=== PATIENT | female | born 1950 | race Caucasian/White ===

== ENCOUNTER → 2016-11-28 | Outpatient (CLI) | payer OTHER, BC ==
[~2016-11-28] MED LIST: ASPI-390 PO; CALCTAB5 PO; CHOL200010 PO; DOXY50CA26 PO; IPRA0.037 NAE; OLOP0.6S NAE
== END | disposition home or self-care (01) ==
LOC: C.PAPS 11:22
PROVIDERS: ATTEND Obstetrics & Gynecology
DX: Z01.419 Encounter for gynecological examination (general) (routine) without abnormal findings (principal)

== ENCOUNTER → 2016-11-29 | Outpatient (CLI) | payer OTHER, BC ==
--- NOTE | 2016-11-30 17:13 | MAMMOGRAPHY REPORT ---
BILATERAL DIGITAL SCREENING MAMMOGRAM TOMOSYNTHESIS WITH CAD: 11/29/2016 CLINICAL HISTORY: Routine screening. Patient has no complaints. TECHNIQUE: Breast tomosynthesis in addition to standard 2D mammography was performed. Current study was also evaluated with a Computer Aided Detection (CAD) system. COMPARISON: Comparison is made to exams dated: 11/26/2015 mammogram, 11/20/2013 mammogram, 11/19/2012 m ammogram, 11/17/2011 mammogram, 11/16/2010 mammogram, and 10/30/2009 mammogram - [facility] enter. BREAST COMPOSITION: The tissue of both breasts is extremely dense, which lowers the sensitivity of mammography. FINDINGS: The parenchymal pattern is unchanged. No developing mass, architectural distortion or clu ster of suspicious microcalcifications is seen in either breast. IMPRESSION: ACR BI-RADS CATEGORY 2: BENIGN There is no mammographic evidence of malignancy. A 1 year screening mammogram is recommended. The p atient will receive written notification of the results. Approximately 10% of breast cancers are not detected with mammography. A negative mammographic repor t should not delay biopsy if a clinically suggestive mass is present. Christine Estrada M.D. ay/:11/30/2016 16:33:19 Senior Water/Wastewater Engineer: Radha GRANADO(R)(M), [facility] letter sent: Normal 1/2 BI-RADS Code: ACR BI-RADS Category 2: Benign
== END | disposition home or self-care (01) ==
LOC: C.MAMM 10:36
PROVIDERS: ATTEND Obstetrics & Gynecology
DX: Z12.31 Encounter for screening mammogram for malignant neoplasm of breast (principal)

== ENCOUNTER → 2017-06-30 | Outpatient (CLI) | payer OTHER, BC ==
[2017-06-30 13:36] LABS: HEMATOCRIT 39.4 % (37-47); MEAN CELL VOLUME 91.2 fL (80-100); MEAN CORPUSCULAR HEMOGLOBIN 30.6 pg (25-34); MEAN CORPUSCULAR HGB CONC 33.5 g/dl (32-36); MEAN PLATELET VOLUME 10.3 fL (7.4-10.4); PLATELET COUNT 235 K/uL (130-400); RED BLOOD COUNT 4.32 M/uL (4.2-5.4); WHITE BLOOD COUNT 4.33 K/uL (4.8-10.8)
[2017-06-30 14:21] LABS: BLOOD UREA NITROGEN 16 mg/dl (7-18); BUN/CREATININE RATIO 22.1 (10-20); CARBON DIOXIDE 28 mmol/L (21-32); CHLORIDE 109 mmol/L (98-107); GLUCOSE 104 mg/dl (70-99); POTASSIUM 4.2 mmol/L (3.5-5.1); SODIUM 142 mmol/L (136-145)
[2017-06-30 14:35] LABS: ALB/GLOB RATIO 1.2 (0.9-2); ALKALINE PHOSPHATASE 102 U/L (45-117); ALT/SGPT 25 U/L (12-78); AST/SGOT 18 U/L (15-37); CHOLESTEROL 244 mg/dl (0-200); CHOLESTEROL/HDL RATIO 3.2; HDL CHOLESTEROL 77 mg/dl; LDL CHOLESTEROL CALCULATED 150 mg/dl; TRIGLYCERIDES 86 mg/dl (0-150); VERY LOW DENSITY LIPOPROT CALC 17 mg/dl
[2017-07-05 02:22] LABS: ANTI-STRIATED MUSCLE NEGATIVE (NEGATIVE); RECEPTOR BINDING AB <0.30 nmol/L
--- NOTE | 2017-07-10 13:16 | CODING QUERY MEDICAL NECESSITY ---
SUPPORTING DIAGNOSIS NEEDED A supporting diagnosis is required for the test/procedure performed on this patient in order for us to be reimbursed by the patient's insurance. Please provide a supporting diagnosis for the following test/procedure listed below next to the test name along with your signature. *If there is no additional diagnosis for this patient that would support the following test/procedure please document that below next to the test/procedure. Test(s)/Procedure(s) that require a supporting diagnosis: * VITAMIN B12 DIAGNOSIS: Provider Signature: Date: Thank you Nayely [place] [employer] Once completed, please kindly fax back to [phone] For questions please call [phone]
== END | disposition home or self-care (01) ==
LOC: C.LABBC 10:27
PROVIDERS: ATTEND Internal Medicine
DX: H53.2 Diplopia (principal); E78.5 Hyperlipidemia, unspecified

== ENCOUNTER → 2017-07-05 | Outpatient (CLI) | payer OTHER, BC ==
[~2017-07-05] MED LIST changes: +GADAVIST IV PRN
--- NOTE | 2017-07-05 09:26 | DIAGNOSTIC IMAGING REPORT ---
MR ANGIOGRAPHY OF THE [place] NO CONTRAST CLINICAL HISTORY: H53.2 [id number] COMPARISON STUDY: None. A 3-D [id number] MR angiographic sequence of the [place] was performed. Both the source and projection images were reviewed. 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 There are origins of the posterior cerebral arteries.. There is no evidence of intracranial stenosis. There are no lesions suspicious for aneurysm. There is a nonspecific 4 mm hyperintense focus, located deep to the anterior aspect of the left anterior, superior to the external auditory canal.. IMPRESSION: No evidence of aneurysm. Electronically signed by: Claudio Hloland M.D. 07/05/2017 9:24 AM Dictated Date/Time: 07/05/2017 9:18 AM
--- NOTE | 2017-07-05 09:32 | DIAGNOSTIC IMAGING REPORT ---
BRAIN COMBO CLINICAL HISTORY: 67 years-old Female presenting with diplopia. TECHNIQUE: Multisequence, multiplanar MR imaging of the brain was performed before and after the administration of intravenous contrast. IV contrast: None. COMPARISON: MRA performed the same day. FINDINGS: Ventricles and sulci normal in size. Brain parenchyma normal in appearance with preserved jackson-white differentiation. No mass effect or midline shift. Focal restricted diffusion in the trigone of the left lateral ventricle consistent with choroid plexus cyst. No restricted diffusion to suggest acute ischemia. No hemorrhage. No extra-axial fluid collection. T2 skull base flow voids preserved. No abnormal parenchymal enhancement. Intracranial vasculature grossly patent. Bone marrow signal intensity within the calvarium within normal limits. IMPRESSION: No acute intracranial pathology. No abnormal enhancement. Electronically signed by: Jerome Pimentel M.D. 07/05/2017 9:31 AM Dictated Date/Time: 07/05/2017 9:23 AM
--- NOTE | 2017-07-17 12:37 | CODING QUERY MEDICAL NECESSITY ---
CQSUPPORTING DIAGNOSIS NEEDED A supporting diagnosis is required for the test/procedure performed on this patient in order for us to be reimbursed by the patient's insurance. Please provide a supporting diagnosis for the following test/procedure listed below next to the test name along with your signature. *If there is no additional diagnosis for this patient that would support the following test/procedure please document that below next to the test/procedure. Test(s)/Procedure(s) that require a supporting diagnosis: DOS 07/05/17 MRI HEAD, AND NECK Provider Signature: Date: Thank you Michelle Barboza [facility] Information Management Once completed, please kindly fax back to [phone] For questions please call [phone]
== END | disposition home or self-care (01) ==
LOC: C.MRIBC 08:11
PROVIDERS: ATTEND Internal Medicine
DX: H53.2 Diplopia (principal)

== ENCOUNTER → 2017-12-01 | Outpatient (CLI) | payer OTHER, BC ==
[~2017-12-01] MED LIST changes: -GADAVIST IV PRN
--- NOTE | 2017-12-01 15:27 | MAMMOGRAPHY REPORT ---
BILATERAL DIGITAL SCREENING MAMMOGRAM TOMOSYNTHESIS WITH CAD: 12/01/2017 CLINICAL HISTORY: Routine screening. TECHNIQUE: Breast tomosynthesis in addition to standard 2D mammography was performed. Current study was also evaluated with a Computer Aided Detection (CAD) system. COMPARISON: Comparison is made to exams dated: 11/29/2016 mammogram, 11/26/2015 mammogram, 11/24/2014 mamm ogram, 11/20/2013 mammogram, 11/19/2012 mammogram, and 11/17/2011 mammogram - [facility]. BREAST COMPOSITION: The tissue of both breasts is extremely dense, which lowers the sensitivity of m ammography. FINDINGS: No suspicious masses, calcifications, or areas of architectural distortion are noted in ei ther breast. There has been no significant interval change compared to prior exams. IMPRESSION: ACR BI-RADS CATEGORY 1: NEGATIVE There is no mammographic evidence of malignancy. A 1 year screening mammogram is recommended. The pa tient will receive written notification of the results. Approximately 10% of breast cancers are not detected with mammography. A negative mammographic report should not delay biopsy if a clinically suggestive mass is present. Odalys Chavis M.D. ah/:12/01/2017 12:20:31 Assistant Shift Supervisor: Radha GRANADO(Yamileth)(M), [facility] letter sent: Normal 1/2 BI-RADS Code: ACR BI-RADS Category 1: Negative
== END | disposition home or self-care (01) ==
LOC: C.MAMM 10:40
PROVIDERS: ATTEND Internal Medicine
DX: Z12.31 Encounter for screening mammogram for malignant neoplasm of breast (principal)

== ENCOUNTER → 2018-01-24 | Outpatient (CLI) | payer OTHER, BC | END | disposition home or self-care (01) | LOC: C.PATHSPEC 16:49 | PROVIDERS: ATTEND Dermatology | DX: L82.1 Other seborrheic keratosis (principal) ==